=== PATIENT | male | born 1940 | race Caucasian/White ===

== ENCOUNTER 2018-04-03 18:51 | Inpatient (IN) | payer BC ==
[~2018-04-03] VITALS: Ht 175.3 cm; Wt 87.1 kg
[2018-04-03 18:59] VITALS: BP_SYST 161
--- NOTE | 2018-04-03 19:05 | NUR ---
Pt c/o black emesis since 1500 this afternoon. States that vomiting resolved, then restarted around 6 pm. Pt last meal was raisen brand with [employer] milk. Pt has papertowel stained black, pt states that it's his emesis. No active vomiting since presented to ER. Family members at bedside.
--- NOTE | 2018-04-03 19:05 | NUR ---
Pt placed to ER bed 03, to gown.
[2018-04-03] MEDS ORDERED: ONDANSETRON HCL 4 MG/2 ML VIAL IVP ONE (19:15)
[2018-04-03] MEDS ORDERED: NACL 0.9% 1,000 ML IV ONE (19:15)
[2018-04-03] MEDS ORDERED: PANTOPRAZOLE SODIUM 40 MG/VIAL (PROTONIX) IVP ONE (19:15)
--- NOTE | 2018-04-03 19:25 | NUR ---
X-ray at bedside.
--- NOTE | 2018-04-03 19:27 | NUR ---
Pt vomits coffee ground emesis, ~ 10 mL. Denies c/o pain or discomfort at this time.
--- NOTE | 2018-04-03 19:35 | NUR ---
Lab at bedside to collect blood samples.
[2018-04-03 19:39] LABS: BASOPHILS # (AUTO) 0.1 K/uL (0.0-0.2); BASOPHILS % (AUTO) 0.6 % (0.0-2.0); EOSINOPHILS # (AUTO) 0.1 K/uL (0.0-0.4); EOSINOPHILS % (AUTO) 0.8 % (0.0-4.0); HEMATOCRIT 44.6 % (36-54); HEMOGLOBIN 14.9 g/dL (14.0-18.0); LYMPHOCYTES # (AUTO) 1.4 K/uL (1.0-5.5); LYMPHOCYTES % (AUTO) 13.4 % (20.5-51.5); MEAN CORPUSCULAR HEMOGLOBIN 32 pg (27-31); MEAN CORPUSCULAR HGB CONC 33 % (32-36); MEAN CORPUSCULAR VOLUME 95 fL (79.0-98.0); MONOCYTES # (AUTO) 0.8 K/uL (0.0-1.0); MONOCYTES % (AUTO) 7.6 % (1.7-9.3); NEUTROPHILS # (AUTO) 7.9 K/uL (1.8-7.7); NEUTROPHILS % (AUTO) 77.6 % (40.0-70.0); PLATELET COUNT (AUTO) 170 K/uL (130-430); RED BLOOD CELL COUNT(AUTO) 4.71 MIL/uL (4.2-6.2); RED CELL DISTRIBUTION WIDTH 13.7 % (9.0-15.0); WHITE BLOOD COUNT (AUTO) 10.3 K/uL (4.8-10.8)
[2018-04-03 19:52] LABS: ANION GAP 8 (5-15); CALCIUM 9.4 mg/dL (8.4-11.0); CHLORIDE 103 mmol/L (98-107); CREATININE 1.03 mg/dL (0.55-1.30); GLUCOSE 110 mg/dL (70-99); POTASSIUM 4.1 mmol/L (3.5-5.1); SODIUM SERUM 139 mmol/L (136-145); UREA NITROGEN, BLOOD 24 mg/dL (8-21)
[2018-04-03 19:55] LABS: PROTHROMBIN TIME 10.3 SECS (9.5-12.5)
[2018-04-03 19:57] LABS: ALANINE AMINOTRANSFERASE 21 U/L (12-78); ALBUMIN 3.6 g/dL (3.4-4.8); ASPARTATE AMINOTRANSFERASE 22 U/L (10-37); TOTAL BILIRUBIN 0.6 mg/dL (0.0-1.0)
[2018-04-03] MEDS ORDERED: LISI40TA4 PO (20:00)
[2018-04-03] MEDS ORDERED: PRAV20TA PO (20:00)
[2018-04-03] MEDS ORDERED: PRO40 PO (20:00)
--- NOTE | 2018-04-03 20:01 | NUR ---
Medication reconciliation completed with information provided by patient. Any prior medication reconciliation on file was reviewed and corrected.
--- NOTE | 2018-04-03 20:05 | NUR ---
Dr. Berry at bedside to update on POC.
--- NOTE | 2018-04-03 20:48 | NUR ---
Pt alert, denies c/o pain or discomfort, family members at bedside.
[2018-04-03 21:03] LABS: BILIRUBIN,URINE NEGATIVE (NEGATIVE); BLOOD, URINE NEGATIVE (NEGATIVE); CLARITY/URINE CLEAR (CLEAR); COLOR,URINE YELLOW (YELLOW); GLUCOSE,URINE NEGATIVE (NEGATIVE); KETONES,URINE NEGATIVE (NEGATIVE); LEUKOCYTE ESTERASE ,URINE NEGATIVE (NEGATIVE); NITRITE, URINE NEGATIVE (NEGATIVE); PROTEIN URINE NEGATIVE (NEGATIVE); UROBILINOGEN,URINE 0.2 (0.2-1.0)
[2018-04-03] MEDS: PANTOPRAZOLE SODIUM 40 MG in NS 50 ML IV SCH ×2 (21:05→21:10)
[2018-04-03] MEDS ORDERED: PANTOPRAZOLE SODIUM 40 MG/VIAL (PROTONIX) ONE (21:08)
--- NOTE | 2018-04-03 21:10 | NUR ---
Order Clarification: Per Dr. Shearer: Stop Protonix Drip as ordered in ER and continue Protonix 40 mg IV q 12.
--- NOTE | 2018-04-03 21:15 | NUR ---
Patient will be admitted to care of Dr. Shearer. Admitted to Med/Surg unit. Will go to room 120B. Belongings list completed. Summary report printed. Phone report given.
--- NOTE | 2018-04-03 21:21 | NUR ---
ADMISSION NOTE Received patient from ER via gurney. Patient admitted with diagnosis of []. Patient is awake, alert, oriented X []. Patient oriented to hospital room, call light, toileting, pain management and safety-teach back done. Patient informed that [] will be [] nurse and that their room number is []. Personal belongings checked and Belongings List documented. Call light within reach.
--- NOTE | 2018-04-03 21:22 | NUR ---
ADMISSION NOTE Received patient from ER via gurney. Patient admitted with diagnosis of Upper GI Bleed. Patient is awake, alert, oriented X 4. Patient oriented to hospital room, call light, toileting, pain management and safety-teach back done. Patient informed that VANIA Mejias will be primary nurse and that their room number is 120B. Personal belongings checked and Belongings List documented. Call light within reach.
[2018-04-03 21:24] VITALS: BP_SYST 151
[2018-04-03] MEDS ORDERED: ACETAMINOPHEN 325 MG TABLET PO PRN (21:30)
[2018-04-03] MEDS ORDERED: LORazepam 2 MG/ML VIAL IVP PRN (21:30)
[2018-04-03] MEDS ORDERED: MORPHINE 4 MG/ML INJ. SYRINGE IVP PRN ×2 (21:30)
[2018-04-03] MEDS ORDERED: cloNIDine HCL 0.1 MG TABLET PO PRN (21:30)
[2018-04-03] MEDS ORDERED: MUPIROCIN 2% TOPICAL OINTMENT 22 GM NS PRN (21:30)
[2018-04-03] MEDS ORDERED: MAGNESIUM SULFATE 50 ML IV PRN (21:30)
[2018-04-03] MEDS ORDERED: ONDANSETRON HCL 4 MG/2 ML VIAL IVP PRN (21:30)
[2018-04-03] MEDS ORDERED: POTASSIUM CHLORIDE 20 MEQ TAB.PRT.SR PO PRN (21:30)
[2018-04-03] MEDS ORDERED: LISINOPRIL 20 MG TABLET PO SCH (21:30)
[2018-04-03] MEDS ORDERED: DOCUSATE SODIUM 100 MG CAPSULE PO PRN (21:30)
[2018-04-03] MEDS ORDERED: ZOLPIDEM TARTRATE 5 MG TABLET PO PRN (21:30)
--- NOTE | 2018-04-03 21:30 | NUR ---
Initial RN Note Pt is fully AAO x4. Speech is clear and pt is able to make his needs known. Pt's and daughter are at the bedside. Pt denies pain or discomfort at this time. IV Protonix is infusing well in RAC without any signs of infiltration. Fall and safety precautions are in place. Pt was instructed to call for assistance as needed and pt verbalized understanding. Call light is with pt and bed is in the lowest and locked positions.
[2018-04-03] MEDS: D5/0.45 NS 1,000 ML IV SCH (21:37)
--- NOTE | 2018-04-03 21:51 | NUR ---
CONSULTATION PAGED/CALLED Reason for Consultation: Upper GI Bleed Person Who was Notified: Imelda Consulting Physician: Dr. Montes; Dr. Hussein debone supervisor Ordering Physician: Dr. Shearer
--- NOTE | 2018-04-03 23:00 | NUR ---
Rounds Pt is resting comfortably in bed. IVF of D51/2NS is infusing well at 80ml/hr in RAC. Fall and safety precautions are in place.
[2018-04-04] VITALS: BP_SYST 135
--- NOTE | 2018-04-04 01:00 | NUR ---
Rounds Pt is sleeping without any distress noted. IVF is infusing well in RAC. Fall and safety precautions are in place.
--- NOTE | 2018-04-04 03:50 | NUR ---
IV Restart Pt accidentally pulled out his IV from RAC while attempting to get out of bed to use urinal. Angiocath was intact and pressure dressing was applied to RAC. New IV line was restarted in left wrist with Angiocath 22G after second attempt. Pt tolerated IV restart well. IVF was resumed at 80ml/hr. Fall and safety precautions are in place.
--- NOTE | 2018-04-04 05:30 | NUR ---
Rounds Pt is sleeping comfortably in bed with IVF infusing well in left wrist. Fall and safety precautions are in place.
[2018-04-04] MEDS ORDERED: SIMETHICONE 40 MG/0.6 ML ML ONE (06:46)
[2018-04-04] MEDS ORDERED: BENZOCAINE 20% 0.5mL UD SPRAY MM ONE (06:46)
[2018-04-04] MEDS ORDERED: fentaNYL CITRATE/PF 100 MCG/2 ML AMP ONE (06:47)
[2018-04-04 06:57] LABS: ANION GAP 11 (5-15); CALCIUM 8.9 mg/dL (8.4-11.0); CHLORIDE 105 mmol/L (98-107); GLUCOSE 108 mg/dL (70-99); POTASSIUM 3.9 mmol/L (3.5-5.1); SODIUM SERUM 143 mmol/L (136-145); UREA NITROGEN, BLOOD 17 mg/dL (8-21)
[2018-04-04 06:59] LABS: PROTHROMBIN TIME 10.4 SECS (9.5-12.5)
--- NOTE | 2018-04-04 07:00 | NUR ---
Closing Note Pt is resting quietly in bed and no distress noted. IVF is infusing well. Fall and safety precautions are in place. Will endorse to day shift nurse.
[2018-04-04 07:02] LABS: BASOPHILS % (AUTO) 0.2 % (0.0-2.0); EOSINOPHILS # (AUTO) 0.1 K/uL (0.0-0.4); EOSINOPHILS % (AUTO) 1.2 % (0.0-4.0); HEMATOCRIT 40.4 % (36-54); HEMOGLOBIN 13.7 g/dL (14.0-18.0); LYMPHOCYTES # (AUTO) 1.5 K/uL (1.0-5.5); LYMPHOCYTES % (AUTO) 12.3 % (20.5-51.5); MEAN CORPUSCULAR HEMOGLOBIN 32 pg (27-31); MEAN CORPUSCULAR HGB CONC 34 % (32-36); MEAN CORPUSCULAR VOLUME 95 fL (79.0-98.0); MONOCYTES # (AUTO) 0.7 K/uL (0.0-1.0); MONOCYTES % (AUTO) 5.6 % (1.7-9.3); NEUTROPHILS # (AUTO) 10.1 K/uL (1.8-7.7); NEUTROPHILS % (AUTO) 80.7 % (40.0-70.0); PLATELET COUNT (AUTO) 155 K/uL (130-430); RED BLOOD CELL COUNT(AUTO) 4.26 MIL/uL (4.2-6.2); RED CELL DISTRIBUTION WIDTH 13.7 % (9.0-15.0); WHITE BLOOD COUNT (AUTO) 12.4 K/uL (4.8-10.8)
[2018-04-04] MEDS: MIDAZOLAM HCL 5 MG/5 ML VIAL ONE ×2 (07:25→07:28)
[2018-04-04] MEDS ORDERED: METOCLOPRAMIDE HCL 10 MG/2 ML VIAL IVP ONE (07:45)
[2018-04-04 08:30] VITALS: BP_SYST 120
--- NOTE | 2018-04-04 08:30 | NUR ---
BACK FROM GI PATIENT BACK FROM GI, PT IN STABLE CONDITION, NO S/S OF DISTRESS OR SOB NOTED, PT HAS NO C/O PAIN AT THIS TIME, PT AAOX4. VERBAL. IV CATHETER PATENT, NO SIGNS OF INFECTION OR INFILTRATION NOTED, VSS, WILL CONTINUE TO MONITOR PT FOR ANY CHANGES, FALL AND SAFETY PRECAUTIONS IN PLACE. UNABLE TO PERFORM EGD DUE TO FOOD NAD FLUID IN STOMACH, PT TO BE KEPT NPO AND WILL TRY AND PERFORM EGD IN AM TOMORROW.
[2018-04-04] MEDS: PANTOPRAZOLE SODIUM 40 MG/VIAL (PROTONIX) IVP SCH ×4 (08:38→21:00)
[2018-04-04] MEDS: LISINOPRIL 20 MG TABLET PO SCH ×2 (08:41→09:00)
[2018-04-04] MEDS: D5/0.45 NS 1,000 ML IV SCH ×2 (08:44→21:00)
--- NOTE | 2018-04-04 10:20 | NUR ---
ROUNDS PT IN BED, NO S/S OF DISTRESS OR SOB NOTED, PT HAS NO C/O PAIN AT THIS TIME, PT IN STABLE CONDITION, PT RESTING COMFORTABLY, WILL CONTINUE TO MONITOR PT FOR ANY CHANGES.
[2018-04-04 12:30] VITALS: BP_SYST 124
--- NOTE | 2018-04-04 14:20 | NUR ---
ESTUARDO CROCKER, DR Cele DOYLE WAS PAGED RE: TO REORDER EGD FOR TOMORROW. SPOKE TO MARINA
--- NOTE | 2018-04-04 14:55 | NUR ---
ROUNDS PT IN BED, NO S/S OF DISTRESS OR SOB NOTED, PT HAS NO C/O PAIN AT THIS TIME, PT IN STABLE CONDITION, PT RESTING COMFORTABLY AND TALKING TO VISITORS AT BEDSIDE, WILL CONTINUE TO MONITOR PT FOR ANY CHANGES.
--- NOTE | 2018-04-04 15:52 | NUR ---
UP IN CHAIR PT UP IN CHAIR WITH ASSIST FROM NURSE. PT TOLERATED.
--- NOTE | 2018-04-04 16:10 | NUR ---
AMBULATION PT AMBULATED WITH ASSIST TO THE RESTROOM, PT TOLERATED.
[2018-04-04 17:30] VITALS: BP_SYST 126
--- NOTE | 2018-04-04 18:18 | NUR ---
CLOSING NOTE PT IN BED, NO S/S OF DISTRESS OR SOB NOTED, PT HAS NO C/O PAIN AT THIS TIME. PT IN STABLE CONDITION. NEEDS MET THROUGHOUT SHIFT. BED AT LOWEST POSITION, CALL LIGHT WITHIN REACH, WILL ENDORSE CARE OF PT TO INCOMING NURSE.
--- NOTE | 2018-04-04 19:15 | NUR ---
CHANGE OF SHIFT: pt. awake, resting, in no acute distress. IVF infusing, denies any discomfort. schedule for EGD tomorrow, kept NPO except meds. call light within reach. bed in low position.
[2018-04-04 20:15] VITALS: BP_SYST 115
--- NOTE | 2018-04-04 20:30 | NUR ---
NOTES: pt. voided per urinal, reminded about the test in am. kept NPO. pt. needs attended.
--- NOTE | 2018-04-04 22:30 | NUR ---
NOTES: Dr. Ocampo called, asking if pt. is already schedule tomorrow for the EGD, nursing stranding supervisor Catina said its at 7 am and made him aware,consent signed already.
[2018-04-04 23:50] VITALS: BP_SYST 145
--- NOTE | 2018-04-05 00:01 | NUR ---
NOTES: pt. checked and sleeping. in no acute distress.
--- NOTE | 2018-04-05 02:26 | NUR ---
NOTES: condition observed. remain asleep. IVF infusing.
--- NOTE | 2018-04-05 04:05 | NUR ---
NOTES: made rounds and remain sleeping. bed in lowest position.
[2018-04-05] MEDS ORDERED: BENZOCAINE 20% 0.5mL UD SPRAY MM ONE (06:23)
[2018-04-05] MEDS ORDERED: SIMETHICONE 40 MG/0.6 ML ML ONE (06:23)
--- NOTE | 2018-04-05 06:30 | NUR ---
CLOSING NOTES' pt. awakened, another consent signed for EGD, no complaints.
--- NOTE | 2018-04-05 06:50 | NUR ---
NOTES: nurse from GI lab took pt. via wheelchair.
[2018-04-05] MEDS: fentaNYL CITRATE/PF 100 MCG/2 ML AMP ONE ×2 (07:06→07:08)
[2018-04-05] MEDS: MIDAZOLAM HCL 5 MG/5 ML VIAL ONE ×3 (07:06→07:12)
--- NOTE | 2018-04-05 07:15 | NUR ---
endorsed pt. to incoming shift with nurse Rojas.
[2018-04-05 07:33] LABS: BASOPHILS % (AUTO) 0.4 % (0.0-2.0); EOSINOPHILS # (AUTO) 0.2 K/uL (0.0-0.4); EOSINOPHILS % (AUTO) 1.7 % (0.0-4.0); HEMATOCRIT 37.5 % (36-54); HEMOGLOBIN 12.4 g/dL (14.0-18.0); LYMPHOCYTES # (AUTO) 1.1 K/uL (1.0-5.5); LYMPHOCYTES % (AUTO) 8.7 % (20.5-51.5); MEAN CORPUSCULAR HEMOGLOBIN 32 pg (27-31); MEAN CORPUSCULAR HGB CONC 33 % (32-36); MEAN CORPUSCULAR VOLUME 97 fL (79.0-98.0); MONOCYTES # (AUTO) 0.9 K/uL (0.0-1.0); MONOCYTES % (AUTO) 7.6 % (1.7-9.3); NEUTROPHILS # (AUTO) 10.2 K/uL (1.8-7.7); PLATELET COUNT (AUTO) 145 K/uL (130-430); RED BLOOD CELL COUNT(AUTO) 3.87 MIL/uL (4.2-6.2); RED CELL DISTRIBUTION WIDTH 13.5 % (9.0-15.0); WHITE BLOOD COUNT (AUTO) 12.4 K/uL (4.8-10.8)
[2018-04-05 07:46] LABS: ANION GAP 8 (5-15); CALCIUM 8.7 mg/dL (8.4-11.0); CHLORIDE 104 mmol/L (98-107); CREATININE 1.02 mg/dL (0.55-1.30); GLUCOSE 111 mg/dL (70-99); POTASSIUM 3.4 mmol/L (3.5-5.1); SODIUM SERUM 140 mmol/L (136-145); UREA NITROGEN, BLOOD 14 mg/dL (8-21)
--- NOTE | 2018-04-05 08:18 | NUR ---
AM NOTES PT just came back from GI lab S/P EGD, drowsy but arousable. V/s stable. safety precaution observed. Call light within reach. Hooked to IVF. no acute distress noted. will monitor.
[2018-04-05 08:20] VITALS: BP_SYST 112
[2018-04-05] MEDS ORDERED: PANTOPRAZOLE SODIUM 40 MG TAB PO SCH (09:00)
[2018-04-05] MEDS: LISINOPRIL 20 MG TABLET PO SCH (09:14)
--- NOTE | 2018-04-05 09:30 | NUR ---
Notes pt sitting at the edge of the bed. Ambulate with steady gait, denies any pain or discomfort. aware of discharge order. Patient called his daughter to pick him up.
[2018-04-05 09:34] VITALS: BP_SYST 112
[2018-04-05 09:35] LABS: NEUTROPHILS % (AUTO) 81.6 % (40.0-70.0)
[2018-04-05] MEDS ORDERED: SUCR1TAB78 PO (09:42)
--- NOTE | 2018-04-05 10:10 | NUR ---
Nutrition Update Pepe Scale 15 noted. Pt admitted for upper GI bleed. Diet: clear liquid BMI: 28.4 kg/m2 RD to follow per nutrition care standards.
[2018-04-05 11:03] VITALS: BP_SYST 109
--- NOTE | 2018-04-05 11:26 | NUR ---
Discharge D/C PT HOME ACCOMPANIED BY FAMILY. TOLERATES DIET. NO VOMITING NOTED. DENIES ANY PAIN OR DISCOMFORT. AMBULATE WITH STEADY GAIT. DISCHARGE INSTRUCTION AND PRESCRIPTION GIVEN AND DISCUSSED WITH PATIENT AND FAMILY. PT VERBALIZE UNDERSTANDING. ARM BAND AND IVL REMOVED.
[2018-04-05] MEDS ORDERED: SUCRALFATE 1 GM/10 ML UDC GT SCH (11:30)
== END 2018-04-05 12:25 | disposition home or self-care (01) | DRG 382 ==
LOC: SED 18:51 → SMU 20:35
PROVIDERS: ADMIT General Practice; ATTEND General Practice
PROC: 0DJ08ZZ Inspection of Upper Intestinal Tract, Via Natural or Artificial Opening Endoscopic (ICD-10-PCS; principal; 2018-04-04 07:30)
PROC: 0DB68ZX Excision of Stomach, Via Natural or Artificial Opening Endoscopic, Diagnostic (ICD-10-PCS; 2018-04-05)
DX: K22.11 Ulcer of esophagus with bleeding (principal); K25.4 Chronic or unspecified gastric ulcer with hemorrhage; K29.61 Other gastritis with bleeding; K57.11 Diverticulosis of small intestine without perforation or abscess with bleeding; I10 Essential (primary) hypertension; K21.9 Gastro-esophageal reflux disease without esophagitis; E78.5 Hyperlipidemia, unspecified; K22.2 Esophageal obstruction; K44.9 Diaphragmatic hernia without obstruction or gangrene; Z87.891 Personal history of nicotine dependence; Z88.1 Allergy status to other antibiotic agents
CPT/HCPCS: 36415; 43235; 43239; 71045; 80048; 80053; 81003; 83605; 83690-TC; 83735-TC; 84484; 85025; 85610-TC; 85730-TC; 87040-TC; 87081; 93005; 96361; 96374; 96375; 99291; C9113; J2250; J2405; J2765; J3010